=== PATIENT | female | born 1965 | race Caucasian/White ===

== ENCOUNTER 2018-05-25 15:40 | Emergency (ER) | payer OTHER ==
[~2018-05-25] VITALS: Ht 167.6 cm; Wt 63.5 kg
[~2018-05-25 15:40] MED LIST: CRESTOR40 MG; ESTAZOLAM2 MG; REMERON15 M1; TRINTELLIX10 MG
[2018-05-25] MEDS ORDERED: ZETIA10 MG (15:58)
[2018-05-25] MEDS ORDERED: TESSALON PERLE100 M1 PO (20:14)
[2018-05-25] MEDS ORDERED: PROMETHAZINE W473 ML PO (20:14)
== END 2018-05-25 21:09 | disposition home or self-care (01) ==
LOC: ER 15:40
DX: R05 Cough (principal)